=== PATIENT | female | born 1985 | race Caucasian/White ===

== ENCOUNTER 2017-01-25 14:48 | Inpatient (IN) | payer BC ==
[~2017-01-25] VITALS: Ht 177.8 cm; Wt 75.0 kg
[2017-01-25 15:01] VITALS: BP 105/55
[2017-01-25] MEDS: LACTATED RINGERS 1,000 ML IV SCH ×2 (17:44→19:21)
[2017-01-26] MEDS: LACTATED RINGERS 1,000 ML IV SCH (08:30)
[2017-01-26] MEDS ORDERED: BETAMETHASONE 6 MG/ML, 5ML IM ONE (10:49)
[2017-01-26] MEDS: BETAMETHASONE 6 MG/ML, 5ML IM SCH (10:56)
[2017-01-26 21:41] VITALS: BP 102/51
[2017-01-27] MEDS: PRENATAL VIT/IRON/FA 1 EACH TABLET HOMEMEDPO SCH (09:00)
[2017-01-27] MEDS: BETAMETHASONE 6 MG/ML, 5ML IM SCH (11:04)
[2017-01-27 20:11] VITALS: BP 105/64
[2017-01-28] MEDS: PRENATAL VIT/IRON/FA 1 EACH TABLET HOMEMEDPO SCH (09:00)
[2017-01-29] MEDS: PRENATAL VIT/IRON/FA 1 EACH TABLET HOMEMEDPO SCH (08:19)
[2017-01-29] MEDS ORDERED: PREN1TAB60 PO (12:25)
[2017-01-30 07:48] VITALS: BP 110/56
[2017-01-30] MEDS ORDERED: PRENATAL VIT/IRON/FA 1 EACH TABLET ONE (09:00)
[2017-01-30] MEDS: PRENATAL VIT/IRON/FA 1 EACH TABLET HOMEMEDPO SCH (09:00)
[2017-01-31 07:30] VITALS: BP 126/55
[2017-01-31] MEDS: PRENATAL VIT/IRON/FA 1 EACH TABLET HOMEMEDPO SCH (09:00)
[2017-01-31] MEDS ORDERED: SODIUM CITRATE/CITRIC ACID 30 ML UDC ONE (19:39)
[2017-01-31] MEDS ORDERED: METOCLOPRAMIDE 5 MG/ML, 2ML ONE (19:39)
[2017-01-31] MEDS ORDERED: SODIUM CITRATE/CITRIC ACID 30 ML UDC PO ONE (21:00)
[2017-01-31] MEDS ORDERED: METOCLOPRAMIDE 5 MG/ML, 2ML IV ONE (21:00)
[2017-01-31] MEDS ORDERED: LACTATED RINGERS 1,000 ML IVBOLUS ONE (21:00)
[2017-01-31] MEDS ORDERED: NEWBORN KIT ONE (21:28)
[2017-02-01] MEDS ORDERED: LACTATED RINGERS 1,000 ML IV SCH ×2 (06:00→07:36)
[2017-02-01] MEDS: OXYTOCIN 30U/ 0.9% NaCL 500ML 500 ML IV SCH ×4 (06:53→17:36)
[2017-02-01] MEDS: LACTATED RINGERS 1,000 ML IV SCH ×2 (07:36→17:36)
[2017-02-01] MEDS ORDERED: FENTANYL PF 100 MCG/2ML ONE (07:40)
[2017-02-01] MEDS ORDERED: HYDROmorphone 2 MG/ML, 1ML ONE (07:40)
[2017-02-01] MEDS ORDERED: BUPIVACAINE 0.25% ONE (07:43)
[2017-02-01] MEDS ORDERED: CEFAZOLIN 1,000 MG ONE (07:43)
[2017-02-01] MEDS ORDERED: ONDANSETRON 2MG/ML, 2ML ONE (07:43)
[2017-02-01] MEDS ORDERED: METOCLOPRAMIDE 5 MG/ML, 2ML IV PRN (08:00)
[2017-02-01] MEDS ORDERED: ONDANSETRON 2MG/ML, 2ML IV PRN (08:00)
[2017-02-01] MEDS ORDERED: SIMETHICONE 80 MG CHEW TAB PO PRN (08:00)
[2017-02-01] MEDS ORDERED: ACETAMINOPHEN 325 MG TABLET PO PRN (08:00)
[2017-02-01] MEDS ORDERED: CALCIUM CARBONATE 500 MG TAB.CHEW PO PRN (08:00)
[2017-02-01] MEDS: PRENATAL VIT/IRON/FA 1 EACH TABLET HOMEMEDPO SCH (09:00)
[2017-02-01] MEDS: PRENATAL VIT/IRON/FA 1 EACH TABLET PO SCH (09:00)
[2017-02-01] MEDS ORDERED: OXYTOCIN 30U/ 0.9% NaCL 500ML 500 ML ONE (09:12)
[2017-02-01 10:05] VITALS: BP 106/53
[2017-02-01] MEDS: KETOROLAC 30 MG/1 ML IV SCH ×2 (11:57→18:14)
[2017-02-01] MEDS: OXYcodone/APAP 5/325MG TABLET PO PRN ×3 (13:50→21:28)
[2017-02-01 15:15] VITALS: BP 96/39
[2017-02-01 19:50] VITALS: BP 94/48
[2017-02-02] MEDS: KETOROLAC 30 MG/1 ML IV SCH ×3 (00:11→12:25)
[2017-02-02 00:20] VITALS: BP 97/49
[2017-02-02] MEDS: OXYcodone/APAP 5/325MG TABLET PO PRN ×5 (01:33→21:08)
[2017-02-02 03:30] VITALS: BP 104/51
[2017-02-02] MEDS: OXYTOCIN 30U/ 0.9% NaCL 500ML 500 ML IV SCH ×2 (03:36→13:36)
[2017-02-02] MEDS: LACTATED RINGERS 1,000 ML IV SCH ×2 (03:36→13:36)
[2017-02-02 07:30] VITALS: BP 95/52
[2017-02-02] MEDS: DOCUSATE 100 MG CAPSULE PO PRN ×2 (08:58→20:32)
[2017-02-02] MEDS: PRENATAL VIT/IRON/FA 1 EACH TABLET PO SCH (09:00)
[2017-02-02 20:30] VITALS: BP 96/39
[2017-02-02] MEDS: IBUPROFEN 600 MG TABLET PO PRN (20:33)
[2017-02-03] MEDS: OXYcodone/APAP 5/325MG TABLET PO PRN ×3 (01:09→11:22)
[2017-02-03] MEDS: IBUPROFEN 600 MG TABLET PO PRN ×2 (04:10→10:31)
[2017-02-03 07:08] VITALS: BP 98/50
[2017-02-03] MEDS: DOCUSATE 100 MG CAPSULE PO PRN (07:46)
[2017-02-03] MEDS: PRENATAL VIT/IRON/FA 1 EACH TABLET PO SCH (09:00)
[2017-02-03] MEDS ORDERED: OXYC-302 PO (11:06)
[2017-02-03] MEDS ORDERED: IBUP-1222 PO (11:06)
[2017-02-03] MEDS ORDERED: DOCU-30 PO (11:07)
== END 2017-02-03 15:07 | disposition home or self-care (01) | DRG 765 ==
LOC: LDOP 14:48 → LDIP 15:06 → OBSVTOIN 01-26 10:50 → 2NW 02-01 10:04
PROVIDERS: ADMIT Student in an Organized Health Care Education/Training Program; ATTEND Student in an Organized Health Care Education/Training Program
PROC: 10D00Z1 Extraction of Products of Conception, Low, Open Approach (ICD-10-PCS; principal; 2017-02-01)
DX: O45.8X2 Other premature separation of placenta, second trimester (principal); O60.23X1 Term delivery with preterm labor, third trimester, fetus 1; O99.354 Diseases of the nervous system complicating childbirth; O76 Abnormality in fetal heart rate and rhythm complicating labor and delivery; Z37.0 Single live birth; Z3A.36 36 weeks gestation of pregnancy; O69.81X0 Labor and delivery complicated by cord around neck, without compression, not applicable or unspecified; G43.909 Migraine, unspecified, not intractable, without status migrainosus; Z91.018 Allergy to other foods
CPT/HCPCS: 36415; 76805; 76815; 81003; 85025; 85384; 85460; 85610; 85730; 86850; 86900; 87081; G0378; J0690; J0702; J1170; J1885; J2405; J3010; J3490; J2590; J2765; J7120